=== PATIENT | female | born 1995 | race Caucasian/White ===

== ENCOUNTER 2016-11-03 13:24 | Emergency (ER) | payer MEDICAID ==
[2016-11-03] MEDS ORDERED: ONDANSETRON ODT 4 MG TAB ONE (14:34)
== END 2016-11-03 15:52 | disposition home or self-care (01) ==
LOC: ER 13:41
DX: J06.9 Acute upper respiratory infection, unspecified (principal); F17.200 Nicotine dependence, unspecified, uncomplicated
CPT/HCPCS: 71020; 81003; 87804; 87880